=== PATIENT | female | born 1950 | race Caucasian/White ===

== ENCOUNTER → 2017-05-22 | Outpatient (CLI) | payer OTHER, BC ==
[~2017-05-22] VITALS: Ht 152.4 cm; Wt 118.1 kg
[~2017-05-22] MED LIST: ASMANEX HFA13 G1 IH; ASPIR-LOW81 MG PO; BENADRYL50 MG PO; CIPRO500 MG PO; CLARITIN10 M3 PO; COUMADIN3 MG PO; COZAAR50 MG PO; CYANOCOBALAM1000 MCG PO; DAILY VALUE1 EACH PO; FLONASE ALLERG9.9 ML BOTH NARES; FLORASTOR250 MG PO; GLUCOSAMINE CH1 EAC2 PO; IRON325 M1 PO; LASIX20 MG PO; LEVAQUIN500 MG PO; LEVOFLOXACIN500 MG PO; LOPRESSOR25 MG PO; METHOCARBAMOL500 MG PO; NASACORT10.8 ML BOTH NARES; NITROSTAT0.4 MG SL; OSTEO BI-FLEX1 EAC3 PO; OXYCODONE HCL5 MG PO; PHENTERMINE HCL15 MG PO; PRILOSEC10 MG PO; PRILOSEC20 MG PO; PROTONIX40 MG PO; ROBAXIN500 MG PO; SYMBICORT60 INHALA1 IH; SYNTHROID125 MCG PO; TOPIRAMATE25 MG PO; VITAMIN D31000 UNIT PO
== END | disposition home or self-care (01) ==
LOC: AMB 12:00
PROC: B24BZZ4 Ultrasonography of Heart with Aorta, Transesophageal (ICD-10-PCS; principal; 2017-05-22)
DX: I34.0 Nonrheumatic mitral (valve) insufficiency (principal); I27.2 Other secondary pulmonary hypertension; I51.7 Cardiomegaly; I10 Essential (primary) hypertension; J44.9 Chronic obstructive pulmonary disease, unspecified; G47.33 Obstructive sleep apnea (adult) (pediatric); Z87.891 Personal history of nicotine dependence; K21.9 Gastro-esophageal reflux disease without esophagitis; E03.9 Hypothyroidism, unspecified; Z79.82 Long term (current) use of aspirin; E66.3 Overweight; Z68.43 Body mass index [BMI] 50.0-59.9, adult
CPT/HCPCS: 93312

== ENCOUNTER → 2017-06-10 | Day surgery (SDC) | payer OTHER, BC ==
[~2017-06-10] VITALS: Ht 152.4 cm; Wt 120.0 kg
[2017-06-10 13:04] LABS: BASE EXCESS 3.3 mEq/L (-3 to +3); BICARBONATE 28.5 mEq/L (22-26); CARBOXY HGB 1.8 % (0-5); METHEMOGLOBIN 1.6 % (0-1.5); PCO2 45 mm Hg (35-45); PO2 39 mm Hg (80-100); pH 7.41 (7.35-7.45)
[2017-06-10 13:05] LABS: SITE PA
[2017-06-10 13:07] LABS: BASE EXCESS 1.3 mEq/L (-3 to +3); BICARBONATE 25.9 mEq/L (22-26); CARBOXY HGB 1.7 % (0-5); METHEMOGLOBIN 1.3 % (0-1.5); PCO2 40 mm Hg (35-45); PO2 93 mm Hg (80-100); pH 7.42 (7.35-7.45)
[2017-06-10 13:08] LABS: SITE AO
== END | disposition home or self-care (01) ==
LOC: CATH 09:52 → OPR 06-13 11:30 → CATH 06-13 11:30
PROVIDERS: Internal Medicine Cardiovascular Disease
DX: I27.2 Other secondary pulmonary hypertension (principal); I34.0 Nonrheumatic mitral (valve) insufficiency; I10 Essential (primary) hypertension; E78.5 Hyperlipidemia, unspecified; J44.9 Chronic obstructive pulmonary disease, unspecified; E66.01 Morbid (severe) obesity due to excess calories; Z68.43 Body mass index [BMI] 50.0-59.9, adult; E03.9 Hypothyroidism, unspecified; Z87.891 Personal history of nicotine dependence; Z82.49 Family history of ischemic heart disease and other diseases of the circulatory system; Z79.82 Long term (current) use of aspirin
CPT/HCPCS: 36600; 82803; 93005; C1760; C1769; C1887; C1894; J1644; J2250; J3010